=== PATIENT | male | born 1955 | race Caucasian/White ===

== ENCOUNTER 2021-02-09 17:53 | Emergency (ER) | payer MEDICARE, MEDICAID, SELFPAY ==
--- NOTE | 2021-02-09 19:02 | ECG_ITS ---
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 Measurements Intervals [place] Rate: 76 P: 60 UT: 173 QRS: 35 QRSD: 122 T: 59 QT: 390 QTc: 439 Interpretive Statements SINUS RHYTHM POSSIBLE RIGHT VENTRICULAR CONDUCTION DELAY [RSR (QR) IN V1/V2] MINIMAL VOLTAGE CRITERIA FOR LVH, CONSIDER NORMAL VARIANT [MEETS CRITERIA IN ONE OF: R(aVL), S(V1), R(V5), R(V5/V6)+S(V1)] PROBABLE INFERIOR MYOCARDIAL INFARCTION [35 ms Q WAVE IN II/aVF], PROBABLY OLD No previous ECG available for comparison Electronically Signed On 02-10-2021 6:10:40 CDT by Ayala Gama M.D. [id number]
--- NOTE | 2021-02-09 19:02 | XRR_ITS ---
PROCEDURE INFORMATION: Exam: XR Chest Exam date and time: 02/09/2021 7:02 PM Age: 65 years old Clinical indication: Chest wall pain; Prior surgery; Surgery type: Open heart; Additional info: Cp TECHNIQUE: Imaging protocol: XR of the chest. Views: 1 view. COMPARISON: No relevant prior studies available. FINDINGS: Lungs: Unremarkable. No consolidation. Pleural spaces: Unremarkable. No pleural effusion. No pneumothorax. Heart/Mediastinum: Previous CABG. No significant cardiac enlargement. Bones/joints: Unremarkable. XR/XR chest 1V portable [id number] IMPRESSION: Negative chest.
[2021-02-09 19:31] VITALS: BP 148/91; PULSE 89; RESP 18; TEMP 37.1; O2SAT 97; BMI 26.2
[2021-02-09 19:39] LABS: Basophils % 0.2 %; Hematocrit 46.7 % (42.0-52.0); Hemoglobin 15.6 g/dL (11.7-16.6); Mean Corpuscular HGB Conc 33.4 g/dL (30.0-36.0); Mean Corpuscular Hemoglobin 30.4 pg (28.0-34.0); Mean Platelet Volume 10.7 fL (7.4-10.4); Monocytes # 0.6 10^3/uL (0.2-0.9); Monocytes % 13.1 %; Neutrophils # 3.25 10^3/uL (1.8-7.7); Neutrophils % 66.5 %; Nucleated Red Blood Cells % 0 %; Platelet Count 191 10^3/cmm (130-400); Red Blood Count 5.13 10^6/uL (4.1-5.3); Red Cell Distribution Width 11.9 % (12.1-15.1); White Blood Count 4.9 10^3/uL (4.0-10.0)
--- NOTE | 2021-02-09 19:43 | ED_ITS ---
HPI - COVID General: Chief Complaint: COVID symptoms Stated Complaint: Chest pain, back pain Time Seen by Provider: 02/09/21 19:42 Triage information: Has fever, cough or shortness of breath . Exposure to COVID + person last 14 days History of Present Illness: HPI Narrative: 65-year-old male patient comes in today with complaints of body aches, nausea and vomiting for 3 days, and malaise. Patient had a low-grade fever yesterday. Last time patient threw up was yesterday. Patient appears mildly unwell. Patient appears alert and oriented. Patient does have a history of [place] in 2016. COVID Results: SARS-CoV-2 Antigen (Rapid) Positive (Negative) H 02/09/21 20:33 02/09/21 Review of Systems General: Reports: 10 or more systems reviewed and unremarkable except in HPI and below Musc: Reports: other (Myalgias) Physical Exam Const: COMMON NORMALS: no acute distress and patient oriented x3 GENERAL A PPEARANCE: cooperative HENMT: COMMON NORMALS: normocephalic, TM's normal bilaterally and Normal external nose present HEAD & SCALP: normal to inspection and normocephalic NOSE: Normal external nose present TYMPANIC MEMBRANE: TM's normal bilaterally MOUTH: Normal oral and palatal mucosa present THROAT: posterior oropharynx normal Eye: GENERAL EYE: appearance normal, both eyes and all related structures Neck/C-Spine: COMMON NORMALS: full ROM Lymph: LYMPHATIC: no lymphadenopathy noted Chest: COMMONS NORMALS: normal inspection of the chest Resp: COMMON NORMALS: normal respiratory effort EFFORT & INSPECTION: Yes able to speak in complete sentences Cardio: COMMON NORMALS: regular rate and regular rhythm RATE: regular rate RHYTHM: regular rhythm GI: COMMON NORMALS: non-tender : COMMON NORMALS: Yes no CVA tenderness BLADDER/KIDNEY EXAM: Yes no CVA tenderness Back/Pelvis: COMMON NORMALS: no CVA tenderness and thoracic and lumbar spine normal to inspection Extremity: COMMON NORMALS: normal to inspection Neuro: COMMON NORMALS: patient oriented x3 and moves all extremities Psych: COMMON NORMALS: mental status grossly normal and cooperative Skin: COMMON NORMALS: no rashes or lesions noted GENERAL SKIN EXAM: no rashes or lesions noted Course Vital Signs: Vital signs: Vital Signs Temperature 98.7 F 02/09/21 19:31 Pulse Rate 75 02/09/21 21:34 Respiratory Rate 21 H 02/09/21 21:34 Blood Pressure 148/82 02/09/21 21:34 Pulse Oximetry 96 02/09/21 21:34 MDM - COVID MDM Narrative: Medical decision making narrative: Patient comes in today with complaints of illness for the last 4 to 5 days. Patient states that he has had nausea and vomiting with severe body aches for the last 4 days. Patient appears mildly unwell. Patient appears in no acute distress. Vital signs are normal. Abdomen soft nontender. Skin is warm and dry. Differential diagnosis includes but not limited to viral syndrome, COVID-19, gastroenteritis, dehydration. Patient did report positive exposure to COVID-19. Patient was positive for COVID-19 per antigen. Laboratory values were unremarkable except for some mild hyponatremia at 130. Patient was infused with 1-1/2 L of normal saline with improvement of overall symptoms. Reviewed exam with patient with recommendations for treatment with monoclonal antibodies. Reviewed pros and cons of the therapy. Patient reported understanding and agreed to go ahead for setting up a time for infusion. Prescription was written and placed with chart and [facility] or the emergency department was notified. Case management order was placed in order to assist with execution of infusion set up. Lab Data: Labs: Lab Results 02/09/21 02/09/21 02/09/21 Range/Units 19:17 19:17 19:17 WBC 4.9 (4.0-10.0) 10^3/ uL RBC 5.13 (4.1-5.3) 10^6/u L Hgb 15.6 (11.7-16.6) g/dL Hct 46.7 (42.0-52.0) % MCV 91.0 (80-94) fL MCH 30.4 (28.0-34.0) pg MCHC 33.4 (30.0-36.0) g/dL RDW 11.9 L (12.1-15.1) % Plt Count 191 (130-400) 10^3/c mm MPV 10.7 H (7.4-10.4) fL Neut % (Auto) 66.5 % Lymph % (Auto) 20.0 % [place] % (Auto) 13.1 % Eos % (Auto) 0.0 % Baso % (Auto) 0.2 % Neut # (Auto) 3.25 (1.8-7.7) 10^3/u L Lymph # (Auto) 1.0 (0.8-4.8) 10^3/u L [place] # (Auto) 0.6 (0.2-0.9) 10^3/u L Eos # (Auto) 0.0 (0.0-0.8) 10^3/u L Baso # (Auto) 0.0 (0.0-0.1) 10^3/u L Nucleated RBC % (a uto) 0 % Nucleated RBCs # 0.0 /100WBC Sodium 130 L (136-145) mmol/L Potassium 3.9 (3.5-5.1) mmol/L Chloride 93 L (98-107) mmol/L Carbon Dioxide 24 (22-29) mmol/L Anion Gap 16.9 (5-19) BUN 15 (8-23) mg/dL Creatinine 0.6 L (0.7-1.2) mg/dL GFR Calculation 136.1 H (90-130) mL/min Glucose 100 (65-115) mg/dL Calculated Osmolal ity 271 L (285-295) mOsm/k g Calcium 8.6 (8.5-10.5) mg/dL Total Bilirubin 0.7 (0.15-1.2) mg/dL AST 57 H (0-40) U/L ALT 55 H (0-41) U/L Alkaline Phosphata se 130 (40-130) IU/L Troponin T Baselin e 9 (0-15) ng/L Total Protein 7.1 (6.6-8.7) g/dL Albumin 4.1 (3.5-5.2) g/dL Globulin 3.0 (1.3-4.6) g/dL Lipase (13-60) U/L SARS-CoV-2 Ag (Rap id) (Negative) 02/09/21 02/09/21 Range/Units 19:17 20:33 WBC (4.0-10.0) 10^3/ uL RBC (4.1-5.3) 10^6/u L Hgb (11.7-16.6) g/dL Hct (42.0-52.0) % MCV (80-94) fL MCH (28.0-34.0) pg MCHC (30.0-36.0) g/dL RDW (12.1-15.1) % Plt Count (130-400) 10^3/c mm MPV (7.4-10.4) fL Neut % (Auto) % Lymph % (Auto) % [place] % (Auto) % Eos % (Auto) % Baso % (Auto) % Neut # (Auto) (1.8-7.7) 10^3/u L Lymph # (Auto) (0.8-4.8) 10^3/u L [place] # (Auto) (0.2-0.9) 10^3/u L Eos # (Auto) (0.0-0.8) 10^3/u L Baso # (Auto) (0.0-0.1) 10^3/u L Nucleated RBC % (a uto) % Nucleated RBCs # /100WBC Sodium (136-145) mmol/L Potassium (3.5-5.1) mmol/L Chloride (98-107) mmol/L Carbon Dioxide (22-29) mmol/L Anion Gap (5-19) BUN (8-23) mg/dL Creatinine (0.7-1.2) mg/dL GFR Calculation (90-130) mL/min Glucose (65-115) mg/dL Calculated Osmolal ity (285-295) mOsm/k g Calcium (8.5-10.5) mg/dL Total Bilirubin (0.15-1.2) mg/dL AST (0-40) U/L ALT (0-41) U/L Alkaline Phosphata se (40-130) IU/L Troponin T Baselin e (0-15) ng/L Total Protein (6.6-8.7) g/dL Albumin (3.5-5.2) g/dL Globulin (1.3-4.6) g/dL Lipase 20 (13-60) U/L SARS-CoV-2 Ag (Rap id) Positive H (Negative) COVID Results: SARS-CoV-2 Antigen (Rapid) Positive (Negative) H 02/09/21 20:33 02/09/21 Discharge Plan Discharge Patient Disposition: Home Clinical Impression: COVID-19, Dehydration Condition: Stable Prescriptions: New ondansetron HCl 4 mg tablet 4 mg PO Q8H PRN (Reason: nausea and vomiting) Qty: 7 RF: 0 Discharge Orders: Discharge ED (Routine); Ordered 02/09/21 Ordered By: Maciel Martines Discharge Diet: Advance as tolerated Discharge Activity: Increase activity as tolerated Patient Instructions: Dehydration (ED), Opioid Safety Activity Restrictions/Additional Instructions: Drink plenty of fluids. Use medication as directed for nausea and vomiting. Use acetaminophen and ibuprofen as needed for pain and discomfort. Along with fever. Drink frequently to avoid dehydration. Follow-up with primary care. Case management will contact you within the next day for a infusion time for monoclonal antibodies. Return to the emergency room for worsening symptoms such as shortness of breath, chest pain, or new concerns. Coding Level of Care Code ED Ground Systems Engineer for Isadora Abel Exam Comprehensive
[2021-02-09 20:17] LABS: Alanine Aminotransferase 55 U/L (0-41); Albumin Level 4.1 g/dL (3.5-5.2); Alkaline Phosphatase 130 IU/L (40-130); Anion Gap 16.9 (5-19); Aspartate Amino Transferase 57 U/L (0-40); Blood Urea Nitrogen 15 mg/dL (8-23); Calcium 8.6 mg/dL (8.5-10.5); Carbon Dioxide 24 mmol/L (22-29); Chloride 93 mmol/L (98-107); Glomerular Filtration Rate 136.1 mL/min (90-130); Glucose 100 mg/dL (65-115); Osmolality Calculated 271 mOsm/kg (285-295); Potassium 3.9 mmol/L (3.5-5.1); Sodium 130 mmol/L (136-145); Total Bilirubin 0.7 mg/dL (0.15-1.2); Total Protein 7.1 g/dL (6.6-8.7)
[2021-02-09] MEDS: ondansetron 2 mg/ML SDV 2 mL 4 MG IVP (20:40)
[2021-02-09] MEDS: sodium chloride 0.9% 500 ML 999 ML IV (20:41)
[2021-02-09 20:46] LABS: Troponin(5th) Baseline 9 ng/L (0-15)
--- NOTE | 2021-02-09 21:02 | ECG_ITS ---
[facility] Test Date: 2021-02-09 Pat Name: Carson Bradshaw Department: Room: Gender: Male Diagnostic Tech: : 1955 Requested By: Vanessa Martins Order Number: [id number] Mckenzie MD: Ayala Gama M.D. Measurements Intervals [place] Rate: 88 P: 72 MS: 149 QRS: 27 QRSD: 110 T: 50 QT: 386 QTc: 469 Interpretive Statements SINUS RHYTHM INCOMPLETE RIGHT BUNDLE BRANCH BLOCK [90+ ms QRS DURATION, TERMINAL R IN V1/V2, 40+ ms S IN I/aVL/V4/V5/V6] INFERIOR MYOCARDIAL INFARCTION [40+ ms Q WAVE AND/OR ST/T ABNORMALITY IN II/aVF], OF INDETERMINATE AGE No previous ECG available for comparison Electronically Signed On 02-10-2021 6:34:19 CDT by Ayala Gama M.D. [id number] f
[2021-02-09 21:16] LABS: SARS Covid-2 Antigen Positive (Negative)
[2021-02-09 21:17] LABS: Lipase 20 U/L (13-60)
[2021-02-09] MEDS: sodium chloride 0.9% 1,000 ML 999 ML IV (21:20)
[2021-02-09 21:34] VITALS: BP 148/82; PULSE 75; RESP 21; O2SAT 96
[2021-02-09 22:36] VITALS: BP 145/84; PULSE 81; RESP 16; O2SAT 96
--- NOTE | 2021-02-10 11:24 | DCPLANNER ---
regulatory affairs manager had message to schedule a BAM infusion for patient. regulatory affairs manager faxed order for a BAM infusion to centralized scheduling for it to be scheduled. Centralize scheduling will call patient with appointment information.
== END 2021-02-09 22:36 | disposition home or self-care (01) ==
PROVIDERS: Emergency Medicine; Emergency Provider Nurse Practitioner Family
DX: U07.1 COVID-19 (principal); E86.0 Dehydration
CPT/HCPCS: 36415; 71045; 80053; 83690; 84484; 85025; 87426; 93005; 96361; 96374; 99284; J2405; J7030; J7040

== ENCOUNTER 2021-02-13 05:52 | Outpatient (CLI) | payer MEDICARE, MEDICAID, SELFPAY ==
--- NOTE | 2021-02-13 07:40 | PC.NURSE ---
Vonnie presents for a BAM infusion. Pt states he has had a fever, Shortness of Breath, N/V, fatigue, loss of sense of smell and taste. Oxygen saturation is 97% on room air at this time.
[2021-02-13 07:42] VITALS: BP 148/82; PULSE 67; RESP 16; O2SAT 97
--- NOTE | 2021-02-13 08:07 | A.OFFVIS_ITS ---
Patient Information Symptom onset date: 02/06/21 COVID 19 common symptoms: positive fever(s), chills, cough, non-productive cough, dyspnea, fatigue, body aches, headache(s), throat pain, nasal congestion, nausea and diarrhea Severity: mild Treatment prior to arrival: none [facility] COVID test results: SARS-CoV-2 Antigen (Rapid) Positive (Negative) H 02/09/21 20:33 02/09/21 Criteria/Plan Inclusion/Exclusion Criteria weight >/= 40kg age >/= 55 and has hypertension and age >/= 55 and has diabetes not requiring hospitalization, not requiring oxygen (if not chronically on oxygen) and no increase oxygen requirement (if chronically on oxygen) Patient education patient/family/caregiver received/reviewed fact sheet, Emergency Use Aut horization/unapproved drug status discussed with patient/family/caregiver, alternatives to this treatment discussed with patient/family/caregiver, risks and benefits of medication reviewed with patient/family/caregiver, patient/family/caregiver given opportunity for questions, which were answered and patient consents to receiving Monoclonal Antibody Treatment Related diagnosis (1) COVID-19: Plan for treatment Meets criteria for Monoclonal Antibody infusion Ordering Monoclonal Antibody infusion for today and Monoclonal antibody information given
[2021-02-13 10:00] VITALS: BP 159/80; PULSE 72; RESP 18; O2SAT 97
--- NOTE | 2021-02-23 12:34 | DCPLANNER ---
retail client manager had message that patient received the monoclonal antibody infusion. retail client manager called to check on patient, unable to speak with patient at this time, a voicemail was left for patient.
== END 2021-02-13 10:02 | disposition home or self-care (01) ==
LOC: ER 05:56
PROVIDERS: Visit Provider Nurse Practitioner Family
DX: U07.1 COVID-19 (principal)
CPT/HCPCS: 96365

== ENCOUNTER 2022-09-27 17:04 | Emergency (ER) | payer MEDICARE, MEDICAID, SELFPAY ==
[2022-09-27 17:06] VITALS: BP 203/110; PULSE 77; RESP 16; TEMP 36.9; O2SAT 97
--- NOTE | 2022-09-27 17:14 | ECG_ITS ---
[facility] Test Date: 2022-09-27 Pat Name: Carson Bradshaw Department: Room: Gender: Male Rib Sawyer: : 1955 Requested By: Ousmane Woods Order Number: [id number] Mckenzie MD: Jasmin Casillas M.D. Measurements Intervals [place] Rate: 77 P: 58 [place]: 165 QRS: 5 QRSD: 110 T: 58 QT: 361 QTc: 409 Interpretive Statements SINUS RHYTHM POSSIBLE LEFT ATRIAL ENLARGEMENT [-0.1mV P-WAVE IN V1/V2] INCOMPLETE RIGHT BUNDLE BRANCH BLOCK [90+ ms QRS DURATION, TERMINAL R IN V1/V2, 40+ ms S IN I/aVL/V4/V5/V6] POSSIBLE LEFT VENTRICULAR HYPERTROPHY [VOLTAGE CRITERIA PLUS LAE OR QRS WIDENING] INFERIOR MYOCARDIAL INFARCTION , PROBABLY OLD [40+ ms Q WAVE AND/OR ST/T ABNORMALITY IN II/aVF] Compared to ECG 02/09/2021 21:27:24 Incomplete right bundle-branch block now present Myocardial infarct finding still present Electronically Signed On 09-27-2022 22:30:11 REHABILITATION PHYSICIAN by Jasmin Casillas M.D. [email or web address] [email or web address] [email or web address]/store/[id number] paola
--- NOTE | 2022-09-27 18:14 | XRR_ITS ---
PROCEDURE INFORMATION: Exam: XR Chest Exam date and time: 09/27/2022 6:44 PM Age: 66 years old Clinical indication: Other: Palpations; Prior surgery; Surgery date: <1 month; Surgery type: Meniscectomy 16 days ago; Additional info: Palpatations TECHNIQUE: Imaging protocol: Radiologic exam of the chest. Views: 1 view. COMPARISON: CR XR chest 1V portable [id number] 02/09/2021 7:50 PM FINDINGS: Lungs: Calcified granulomas in the right lung. Mild linear atelectasis or scar in the left mid lung. The lungs otherwise are clear. Pleural spaces: Unremarkable. No pleural effusion. No pneumothorax. Heart/Mediastinum: The heart size is normal. Bones/joints: Sternotomy changes with mediastinal clips. Hypertrophic degenerative changes of the shoulders. XR/XR chest 1V portable [id number] IMPRESSION: No acute findings.
[2022-09-27 19:00] LABS: Basophils % 0.2 %; Eosinophils # 0.1 10^3/uL (0.0-0.8); Eosinophils % 0.9 %; Hematocrit 46.7 % (42.0-52.0); Hemoglobin 15.4 g/dL (11.7-16.6); Lymphocytes # 2.7 10^3/uL (0.8-4.8); Lymphocytes % 30.7 %; Mean Platelet Volume 9.4 fL (7.4-10.4); Monocytes # 0.9 10^3/uL (0.2-0.9); Monocytes % 10.6 %; Neutrophils % 57.4 %; Nucleated Red Blood Cells % 0 %; Platelet Count 332 10^3/cmm (130-400); Red Blood Count 5.13 10^6/uL (4.1-5.3); Red Cell Distribution Width 11.9 % (12.1-15.1); White Blood Count 8.9 10^3/uL (4.0-10.0)
[2022-09-27 19:29] LABS: Alanine Aminotransferase 27 U/L (0-41); Albumin Level 4.7 g/dL (3.5-5.2); Alkaline Phosphatase 100 U/L (40-130); Anion Gap 13.8 (5-19); Aspartate Amino Transferase 19 U/L (0-40); Blood Urea Nitrogen 21 mg/dL (8-23); Calcium 9.9 mg/dL (8.5-10.5); Carbon Dioxide 28 mmol/L (22-29); Chloride 100 mmol/L (98-107); Globulin 2.5 g/dL (1.3-4.6); Glomerular Filtration Rate 97.3 mL/min (90-130); Glucose 94 mg/dL (65-115); Osmolality Calculated 289 mOsm/kg (285-295); Potassium 3.8 mmol/L (3.5-5.1); Sodium 138 mmol/L (136-145); Thyroid Stimulating Hormone 1.66 uIU/mL (0.27-4.20); Total Bilirubin 0.2 mg/dL (0.15-1.2); Total Protein 7.2 g/dL (6.6-8.7)
--- NOTE | 2022-09-27 19:31 | ED_ITS ---
HPI - Arrhythmia/Palpitations General: Chief Complaint: Arrhythmia/Palpitations Stated Complaint: High HR Time Seen by Provider: 09/27/22 19:17 Source: patient Mode of arrival: ambulatory Limitations: no limitations History of Present Illness: 66-year-old male states over the last few days that he feels like he can hear his heartbeat in his head. He does have a history of hypertension he is on carvedilol 3.125 he states he does not believe it is enough as he has been hypertensive he states for quite some time his blood pressure here is the 200s he denies any headache he denies any chest pain denies any palpitations denies any shortness of breath. Associated symptoms: Deny nausea or vomiting Review of Systems Const: Denies: fever(s), chills, body aches or change in appetite Eyes: Denies: blurry vision or eye discomfort ENMT: Denies: throat pain or dental pain Card: Denies: chest pain Resp: Denies: dyspnea GI: Denies: abdominal pain, nausea, vomiting or diarrhea : Denies: dysuria Musc: Denies: neck pain or back pain Skin/Breast: Denies: rash Neuro: Denies: headache(s) Psych: Denies: depression Esteban/Lymph: Denies: easy bruising All/Imm: Denies: urticaria PFSH ED PFSH: Medical History (Updated 09/27/22 @ 20:27 by Vanessa Martins MD) COVID-19 Social History (Updated 09/27/22 @ 19:33 by Vanessa Martins MD) Substance/Drug Use: never Physical Exam Const: COMMON NORMALS: no acute distress, patient oriented x3 and healthy appearing HENMT: COMMON NORMALS: normocephalic and atraumatic HEAD & SCALP: normocephalic and atraumatic Eye: COMMON NORMALS: Equal, round and reactive pupils present and EOMs intact bilaterally PUPIL: Yes Equal, round and reactive pupils present Neck/C-Spine: COMMON NORMALS: full ROM and supple Chest: COMMONS NORMALS: normal inspection of the chest and normal palpation of entire chest wall Resp: COMMON NORMALS: normal respiratory effort, No retractions, No use of accessory muscles and clear to auscultation bilaterally AUSCULTATION: clear to auscultation bilaterally Cardio: COMMON NORMALS: regular rate, regular rhythm and No murmurs present (Cardio) RATE: regular rate RHYTHM: regular rhythm GI: COMMON NORMALS: Normal to inspection, nondistended, normoactive bowel sounds present, Soft to palpation, non-tender and no masses PALPATION: Yes Soft to palpation Extremity: COMMON NORMALS: normal to inspection and full ROM Neuro: COMMON NORMALS: patient oriented x3, moves all extremities and no focal motor deficits Psych: COMMON NORMALS: mental status grossly normal, Normal thought process present and cooperative THOUGHT PROCESS: Normal thought process present Skin: COMMON NORMALS: no rashes or lesions noted and no wounds GENERAL SKIN EXAM: no rashes or lesions noted Course Vital Signs: Vital signs: Vital Signs Temperature 98.5 F 09/27/22 17:06 Pulse Rate 76 09/27/22 20:30 Respiratory Rate 16 09/27/22 20:30 Blood Pressure 133/62 09/27/22 20:30 Pulse Oximetry 94 09/27/22 20:30 Oxygen Delivery Me thod 09/27/22 20:30 MDM - Arrhythmia/Palpitations Medical Decision Making Patient presents here with hypertension he has had no chest pain his blood work is normal he feels much improved after his blood pressure is improved we will double his carvedilol from 3.125 to 6.25 twice a day he is to follow-up with PCP and return if worsening. Lab Data 09/27/22 18:51 09/27/22 18:51 Radiology Impressions Chest X-Ray 09/27/22 18:14 IMPRESSION: No acute findings. Laboratory Results WBC 8.9 10^3/uL (4.0-10.0) 09/27/22 18:51 RBC 5.13 10^6/uL (4.1-5.3) 09/27/22 18:51 Hgb 15.4 g/dL (11.7-16.6) 09/27/22 18:51 Hct 46.7 % (42.0-52.0) 09/27/22 18:51 MCV 91.0 fl (80-94) 09/27/22 18:51 MCH 30.0 pg (28.0-34.0) 09/27/22 18:51 MCHC 33.0 g/dL (30.0-36.0) 09/27/22 18:51 RDW 11.9 % (12.1-15.1) L 09/27/22 18:51 Plt Count 332 10^3/cmm (130-400) 09/27/22 18:51 MPV 9.4 fL (7.4-10.4) 09/27/22 18:51 Neut % (Auto) 57.4 % 09/27/22 18:51 Lymph % (Auto) 30.7 % 09/27/22 18:51 [place] % (Auto) 10.6 % 09/27/22 18:51 Eos % (Auto) 0.9 % 09/27/22 18:51 Baso % (Auto) 0.2 % 09/27/22 18:51 Neut # (Auto) 5.10 10^3/uL (1.8-7.7) 09/27/22 18:51 Lymph # (Auto) 2.7 10^3/uL (0.8-4.8) 09/27/22 18:51 [place] # (Auto) 0.9 10^3/uL (0.2-0.9) 09/27/22 18:51 Eos # (Auto) 0.1 10^3/uL (0.0-0.8) 09/27/22 18:51 Baso # (Auto) 0.0 10^3/uL (0.0-0.1) 09/27/22 18:51 Nucleated RBC % (auto) 0 % 09/27/22 18:51 Nucleated RBCs # 0.0 /100WBC 09/27/22 18:51 Sodium 138 mmol/L (136-145) 09/27/22 18:51 Potassium 3.8 mmol/L (3.5-5.1) 09/27/22 18:51 Chloride 100 mmol/L (98-107) 09/27/22 18:51 Carbon Dioxide 28 mmol/L (22-29) 09/27/22 18:51 Anion Gap 13.8 (5-19) 09/27/22 18:51 BUN 21 mg/dL (8-23) 09/27/22 18:51 Creatinine 0.8 mg/dL (0.7-1.2) 09/27/22 18:51 GFR Calculation 97.3 mL/min (90-130) 09/27/22 18:51 Glucose 94 mg/dL (65-115) 09/27/22 18:51 Calculated Osmolality 289 mOsm/kg (285-295) 09/27/22 18:51 Calcium 9.9 mg/dL (8.5-10.5) 09/27/22 18:51 Magnesium 2.0 mg/dL (1.7-2.3) 09/27/22 18:51 Total Bilirubin 0.2 mg/dL (0.15-1.2) 09/27/22 18:51 AST 19 U/L (0-40) 09/27/22 18:51 ALT 27 U/L (0-41) 09/27/22 18:51 Alkaline Phosphatase 100 U/L (40-130) 09/27/22 18:51 Total Protein 7.2 g/dL (6.6-8.7) 09/27/22 18:51 Albumin 4.7 g/dL (3.5-5.2) 09/27/22 18:51 Globulin 2.5 g/dL (1.3-4.6) 09/27/22 18:51 TSH 1.66 uIU/mL (0.27-4.20) 09/27/22 18:51 Discharge Plan Discharge Patient Disposition: Home Clinical Impression: Hypertension Condition: Stable Prescriptions: New Coreg 6.25 mg tablet 6.25 mg PO BID Qty: 60 0RF Rx Instructions: must administer with a meal/food No Action ondansetron HCl 4 mg tablet 4 mg PO Q8H PRN (Reason: nausea and vomiting) Qty: 7 0RF Discharge Orders: Discharge ED (Routine); Ordered 09/27/22 Ordered By: Vanessa Martins Referrals: Ivone Vo DO [Primary Care Provider] - 1-3 days Discharge Diet: Advance as tolerated Discharge Activity: Resume usual activity Patient Instructions: Hypertension (ED) Coding Level of Care Code ED Solar Photovoltaic Systems Engineer for Isadora Abel
[2022-09-27 19:49] VITALS: BP 184/93; PULSE 70; RESP 17; O2SAT 95
[2022-09-27] MEDS: hyDRALAzine 20 mg/mL INJ 1 mL 10 MG IVP (19:58)
[2022-09-27 20:30] VITALS: BP 133/62; PULSE 76; RESP 16; O2SAT 94
[2022-09-27 21:00] VITALS: BP 133/62; PULSE 80; RESP 16; O2SAT 94
== END 2022-09-27 20:55 | disposition home or self-care (01) ==
PROVIDERS: Emergency Medicine; Emergency Provider Emergency Medicine; PCP Family Medicine
DX: I10 Essential (primary) hypertension (principal)
CPT/HCPCS: 71045; 80053; 83735; 84443; 85025; 93005; 96374; 99285; J0360

== ENCOUNTER 2023-01-18 18:15 | Emergency (ER) | payer MEDICARE, MEDICAID, SELFPAY ==
[2023-01-18] VITALS (9 sets, daily range): BP systolic 136–179; BP diastolic 72–96; PULSE 61–83; RESP 14–18; TEMP 36.7; O2SAT 94–97
--- NOTE | 2023-01-18 19:55 | CTR_ITS ---
PROCEDURE INFORMATION: Exam: CT Head Without Contrast Exam date and time: 01/18/2023 8:02 PM Age: 67 years old Clinical indication: Pain; Headache not specified; Additional info: Left eye pain, headache TECHNIQUE: Imaging protocol: Computed tomography of the head without contrast. Radiation optimization: All CT scans at this facility use at least one of these dose optimization techniques: automated exposure control; mA and/or kV adjustment per patient size (includes targeted exams where dose is matched to clinical indication); or iterative reconstruction. REPORTING DATA: Count of CT and Cardiac NM exams in prior 12 months: This patient has received 0 known CTs and 0 known cardiac nuclear medicine studies in the 12 months prior to the current study. COMPARISON: No relevant prior studies available. RADIATION DOSE METRICS: Total DLP (mGy-cm): 1153.92 FINDINGS: Brain: No focal hemorrhage or midline shift is identified. The ventricles and parenchyma show mild atrophy and chronic bicerebral white matter ischemic change. Cerebral ventricles: No ventriculomegaly or evidence of hydrocephalus. Paranasal sinuses: No evidence of acute sinusitis. Mastoid air cells: Visualized mastoid air cells are well aerated. Bones/joints: No displaced skull fracture is noted. Soft tissues: Unremarkable. Vasculature: Diffuse vascular calcifications are present. CT/CT head wo con* [id number] IMPRESSION: 1. No acute intracranial abnormality. 2. Mild age-related changes.
[2023-01-18] MEDS: tetracaine 0.5% Op Soln 4 mL Btl 1 DROP EYE-LEFT (20:27)
[2023-01-18 20:57] LABS: Basophils % 0.1 %; Eosinophils % 0.2 %; Hematocrit 48.5 % (42.0-52.0); Hemoglobin 16.6 g/dL (11.7-16.6); Lymphocytes # 1.7 10^3/uL (0.8-4.8); Lymphocytes % 21.2 %; Mean Corpuscular HGB Conc 34.2 g/dL (30.0-36.0); Mean Corpuscular Hemoglobin 30.4 pg (28.0-34.0); Mean Corpuscular Volume 88.8 fl (80-94); Mean Platelet Volume 9.4 fL (7.4-10.4); Monocytes # 0.7 10^3/uL (0.2-0.9); Monocytes % 8.8 %; Neutrophils % 69.5 %; Nucleated Red Blood Cells % 0 %; Platelet Count 314 10^3/cmm (130-400); Red Blood Count 5.46 10^6/uL (4.1-5.3); Red Cell Distribution Width 11.9 % (12.1-15.1); White Blood Count 8.2 10^3/uL (4.0-10.0)
[2023-01-18 20:58] LABS: Erythrocyte Sedimentation Rate 21 mm/hr (0-10)
[2023-01-18 21:14] LABS: Alanine Aminotransferase 19 U/L (0-41); Albumin Level 4.5 g/dL (3.5-5.2); Alkaline Phosphatase 100 U/L (40-130); Aspartate Amino Transferase 18 U/L (0-40); Blood Urea Nitrogen 14 mg/dL (8-23); Carbon Dioxide 26 mmol/L (22-29); Chloride 97 mmol/L (98-107); Globulin 2.8 g/dL (1.3-4.6); Glomerular Filtration Rate 135.2 mL/min (90-130); Glucose 103 mg/dL (65-115); Osmolality Calculated 283 mOsm/kg (285-295); Sodium 136 mmol/L (136-145); Total Bilirubin 0.8 mg/dL (0.15-1.2); Total Protein 7.3 g/dL (6.6-8.7)
[2023-01-18 21:23] LABS: Creatinine Clr Calc Pharmacy 95.3964
[2023-01-18 21:27] LABS: Anion Gap 17.1 (5-19); Potassium 4.1 mmol/L (3.5-5.1)
--- NOTE | 2023-01-18 21:59 | PC.NURSE ---
One tetracaine eye drop administered to left eye, verbal order received from Dr. Stockton.
--- NOTE | 2023-01-19 04:31 | ED_ITS ---
HPI - Headache General: Chief Complaint: Headache Stated Complaint: can't sit up Time Seen by Provider: 01/18/23 19:26 History of Present Illness: 67-year-old male presenting with left eye and periorbital pain. He has had this on and off several times. He notes this episode is lasted for 3 to 4 days. Pain is essentially located in the eye. Skin is somewhat tender to touch around the eye. He has had a mild headache at times associated with the pain. No visual changes. No redness or drainage from the eye. Pain is relieved by lying down, particularly on the opposite side. It is worsened by sitting up, or touching the orbital area. MD elicited complaint: headache Pertinent past history: other Onset (ago): day(s) Onset description: gradually Location: left and retro-orbital Quality & Timing: sharp and other ( Shocking ) Exacerbating factors: other Relieving factors: other Associated symptoms: Reports eye pain; Deny chest pain, confusion, cough, diaphoresis, eye redness, fever(s), loss of vision, nausea, neck stiffness, numbness, paresthesias or vomiting Review of Systems Const: Denies: fever(s) or diaphoresis Eyes: Reports: eye discomfort; Denies: change in vision, blurry vision, photophobia, eye discharge or eye redness ENMT: Denies: throat pain Card: Denies: chest pain GI: Denies: nausea or vomiting Neuro: Denies: confusion PFS ED PFSH: Medical History COVID-19 Social History Substance/Drug Use: never Physical Exam Const: COMMON NORMALS: no acute distress GENERAL APPEARANCE: cooperative; not ill appearing and not frail appearing HENMT: COMMON NORMALS: normocephalic, atraumatic and Normal external nose present HEAD & SCALP: normocephalic and atraumatic FACE & SINUS: normal facial exam and face symmetric NOSE: Normal external nose present Eye: COMMON NORMALS: Equal, round and reactive pupils present and EOMs intact bilaterally PUPIL: Yes Equal, round and reactive pupils present Neck/C-Spine: GENERAL: Yes trachea midline Chest: CHEST: Yes Symmetrical chest wall rise Resp: COMMON NORMALS: normal respiratory effort, No retractions, No use of accessory muscles and clear to auscultation bilaterally AUSCULTATION: clear to auscultation bilaterally Cardio: COMMON NORMALS: regular rate and regular rhythm RATE: regular rate RHYTHM: regular rhythm GI: COMMON NORMALS: Normal to inspection, nondistended, normoactive bowel sounds present Extremity: COMMON NORMALS: no pedal edema Neuro: BRONSON COMA SCALE: document GCS findings Bronson coma scale eye opening: Spontaneous [place] coma scale verbal response: Orientated Bronson coma scale motor response: Obey commands Bronson coma scale total score: 15 SENSORY EXAM: Yes extremities (intact) Psych: COMMON NORMALS: speech normal SPEECH: Yes normal speech Skin: COMMON NORMALS: no rashes or lesions noted GENERAL SKIN EXAM: no rashes or lesions noted Course Vital Signs: Vital signs: Vital Signs Temperature 98.0 F 01/18/23 18:31 Pulse Rate 67 01/18/23 23:07 Respiratory Rate 18 01/18/23 23:07 Blood Pressure 136/77 01/18/23 23:07 Pulse Oximetry 96 01/18/23 23:07 Oxygen Delivery Me thod Room Air 01/18/23 23:00 MDM - Headache Medical Decision Making Left eye and orbital pain in a patient previously diagnosed with likely trigeminal neuralgia. He was given tetracaine drops with some transient improvement, although his pain is incompletely treated with this. No rash or lesion is definitely noted to the area, although there is some mild redness to the left nasal crease. No vesicular rash currently, although the patient notes that he did have this type of rash prior to some cream being prescribed. Intraocular pressure is 13 by testing. Sclera is not injected. No history of eye trauma. No pain with extraocular movement. These are intact. Head CT is negative. No tenderness to palpation of the temporal artery. His sed rate and CRP are normal. His white blood cell count is normal. This is likely trigeminal neuralgia, although I do not know that zoster can be completely ruled out. He will be treated with valacyclovir empirically because this is a potential cause. He is given ketorolac drops, as he did seem to have some relief with tetracaine. He will continue his Tegretol, and pain medication. We will ask him to follow-up with ophthalmology hopefully to render an opinion on less likely zoster as a cause. He will be discharged. Lab Data 01/18/23 20:51 01/18/23 20:[address] 01/18/23 19:55 IMPRESSION: 1. No acute intracranial abnormality. 2. Mild age-related changes. Laboratory Results WBC 8.2 10^3/uL (4.0-10.0) 01/18/23 20:51 RBC 5.46 10^6/uL (4.1-5.3) H 01/18/23 20:51 Hgb 16.6 g/dL (11.7-16.6) 01/18/23 20:51 Hct 48.5 % (42.0-52.0) 01/18/23 20:51 MCV 88.8 fl (80-94) 01/18/23 20:51 MCH 30.4 pg (28.0-34.0) 01/18/23 20:51 MCHC 34.2 g/dL (30.0-36.0) 01/18/23 20:51 RDW 11.9 % (12.1-15.1) L 01/18/23 20:51 Plt Count 314 10^3/cmm (130-400) 01/18/23 20:51 MPV 9.4 fL (7.4-10.4) 01/18/23 20:51 Neut % (Auto) 69.5 % 01/18/23 20:51 Lymph % (Auto) 21.2 % 01/18/23 20:51 [place] % (Auto) 8.8 % 01/18/23 20:51 Eos % (Auto) 0.2 % 01/18/23 20:51 Baso % (Auto) 0.1 % 01/18/23 20:51 Neut # (Auto) 5.70 10^3/uL (1.8-7.7) 01/18/23 20:51 Lymph # (Auto) 1.7 10^3/uL (0.8-4.8) 01/18/23 20:51 [place] # (Auto) 0.7 10^3/uL (0.2-0.9) 01/18/23 20:51 Eos # (Auto) 0.0 10^3/uL (0.0-0.8) 01/18/23 20:51 Baso # (Auto) 0.0 10^3/uL (0.0-0.1) 01/18/23 20:51 Nucleated RBC % (auto) 0 % 01/18/23 20:51 Nucleated RBCs # 0.0 /100WBC 01/18/23 20:51 ESR 21 mm/hr (0-10) H 01/18/23 20:51 Sodium 136 mmol/L (136-145) 01/18/23 20:51 Potassium 4.1 mmol/L (3.5-5.1) 01/18/23 20:51 Chloride 97 mmol/L (98-107) L 01/18/23 20:51 Carbon Dioxide 26 mmol/L (22-29) 01/18/23 20:51 Anion Gap 17.1 (5-19) 01/18/23 20:51 BUN 14 mg/dL (8-23) 01/18/23 20:51 Creatinine 0.6 mg/dL (0.7-1.2) L 01/18/23 20:51 GFR Calculation 135.2 mL/min (90-130) H 01/18/23 20:51 Glucose 103 mg/dL (65-115) 01/18/23 20:51 Calculated Osmolality 283 mOsm/kg (285-295) L 01/18/23 20:51 Calcium 10.0 mg/dL (8.5-10.5) 01/18/23 20:51 Total Bilirubin 0.8 mg/dL (0.15-1.2) 01/18/23 20:51 AST 18 U/L (0-40) 01/18/23 20:51 ALT 19 U/L (0-41) 01/18/23 20:51 Alkaline Phosphatase 100 U/L (40-130) 01/18/23 20:51 C-Reactive Protein 3.0 mg/L (0.0-4.9) 01/18/23 20:51 Total Protein 7.3 g/dL (6.6-8.7) 01/18/23 20:51 Albumin 4.5 g/dL (3.5-5.2) 01/18/23 20:51 Globulin 2.8 g/dL (1.3-4.6) 01/18/23 20:51 Discharge Plan Discharge Patient Disposition: Home Clinical Impression: Headache, Trigeminal neuralgia of left side of face Condition: Stable Prescriptions: New ketorolac 0.4 % drops 1 drp ophthalmic (eye) Q6H 4 Days Qty: 5 0RF valacyclovir 1 gram tablet 1,000 mg PO BID 7 Days Qty: 14 0RF No Action ondansetron HCl 4 mg tablet 4 mg PO Q8H PRN (Reason: nausea and vomiting) Qty: 7 0RF Coreg 6.25 mg tablet 6.25 mg PO BID Qty: 60 0RF Rx Instructions: must administer with a meal/food Discharge Orders: Discharge ED (Routine); Ordered 01/18/23 Ordered By: Kieran Stockton Referrals: Jayden Elizalde [Referring] - 1-3 days Ivone Vo DO [Primary Care Provider] - Patient Instructions: Trigeminal Neuralgia (ED), Opioid Safety, Pain Management Activity Restrictions/Additional Instructions: Return for trouble with vision, worsening pain despite treatment, any other concerning symptoms. Call the ophthalmology clinic on Saturday morning for an appointment. Let them know you were seen here. Coding Level of Care Code ED Project Administrative Assistant for Isadora Abel
== END 2023-01-18 23:09 | disposition home or self-care (01) ==
PROVIDERS: Emergency Provider Emergency Medicine; PCP Family Medicine
DX: R51.9 Headache, unspecified (principal); G50.0 Trigeminal neuralgia
CPT/HCPCS: 36415; 70450; 80053; 85025; 85651; 86140; 99284

== ENCOUNTER 2023-03-19 15:36 | Emergency (ER) | payer MEDICARE, MEDICAID, SELFPAY ==
[2023-03-19 15:41] VITALS: BP 198/109; PULSE 88; RESP 16; TEMP 36.5; O2SAT 95; BMI 27.3
[2023-03-19] MEDS: tetanus-diphtheria tox (adult) 0.5 mL SDV IM (16:21)
[2023-03-19] MEDS: fluorescein 1 mg Strip EYE-RIGHT (16:23)
[2023-03-19] MEDS: tetracaine 0.5% Op Soln 4 mL Btl 1 DROP EYE-RIGHT (16:23)
--- NOTE | 2023-03-19 16:57 | W.ED.EYEPROB ---
HPI - Eye Problem General: Chief complaint: Eye Problems Stated complaint: eye injury, mowing Time Seen by Provider: 03/19/23 15:57 Source: patient Mode of arrival: ambulatory History of Present Illness: 67-year-old male who presents to the emergency room with complaints of a right eye injury. He was mowing the lawn felt some debris hit his eye. Blurry vision initially then improved. He is unsure of his last tetanus shot. chief complaint: eye pain and eye injury Onset (ago): minute(s) Onset description: sudden Location: right eye Eye Symptoms: redness, pain and foreign body sensation Place: home Mechanism: other (Debris while mowing) Treatments Prior to Arrival: none PFSH ED PFSH: Medical History COVID-19 Social History Substance/Drug Use: never Physical Exam Const: GENERAL APPEARANCE: cooperative and comfortable HENMT: COMMON NORMALS: normocephalic, atraumatic and hearing grossly normal bilaterally HEAD & SCALP: normocephalic and atraumatic Eye: OTHER: Tetracaine applied to the right eye and then fluorescein dye there is a large abrasion at the 11 to 12 o'clock position that extends 3 to 4 mm into the cornea from its edges has a punctation near its apex towards the central portion of the cornea. It does not involve the central aspect of the cornea. There appears to be a foreign body at the 6 o'clock position about 3 x 4 mm irregularly shaped in the anterior chamber it is not superficial. Does not interfere with the central portion of the cornea at this time. No hyphema noted. Course Vital Signs: Vital signs: Vital Signs Temperature 97.7 F 03/19/23 15:41 Pulse Rate 88 03/19/23 15:41 Respiratory Rate 16 03/19/23 15:41 Blood Pressure 198/109 03/19/23 15:41 Pulse Oximetry 95 03/19/23 15:41 Oxygen Delivery Me thod Room Air 03/19/23 15:41 MDM - Eye Problem Medical Decision Making Corneal abrasion with an anterior chamber foreign body. Discussed with Dr. Gallego who is available for call for ophthalmology. We do not have adequate equipment to manage this here but he does at his office there is no emergent condition that require admission but he does require further evaluation with proper equipment. We will discharge the patient from here and direct him to Dr. Gallego's office for definitive care. Patient's tetanus was updated prior to discharge. Discharge Plan Discharge Patient Disposition: Home Clinical Impression: Foreign body of anterior chamber of right eye Condition: Stable Prescriptions: No Action carvedilol [Coreg] 6.25 mg tablet 6.25 mg PO BID Qty: 60 0RF Rx Instructions: must administer with a meal/food protriptyline 10 mg tablet 10 mg PO TID oxycodone 20 mg tablet 20 mg PO QID Discharge Orders: Discharge ED (Routine); Ordered 03/19/23 Ordered By: Ankit Larson Referrals: Carson Gallego MD [Physician] - Ivone Vo DO [Primary Care Provider] - Patient Instructions: Opioid Safety, Pain Management Coding Level of Care Code ED Manager Budget for Isadora Abel
== END 2023-03-19 16:56 | disposition home or self-care (01) ==
PROVIDERS: Emergency Provider Family Medicine; PCP Family Medicine
DX: T15.81XA Foreign body in other and multiple parts of external eye, right eye, initial encounter (principal); X58.XXXA Exposure to other specified factors, initial encounter; Z23 Encounter for immunization
CPT/HCPCS: 90471; 90714; 99283